=== PATIENT | male | born 1970 | race Caucasian/White ===

== ENCOUNTER 2024-09-16 15:29 | Outpatient (CLI) | payer MEDICAID | END 2024-09-16 23:59 | disposition home or self-care (01) | LOC: RAD 15:29 | DX: M51.16 Intervertebral disc disorders with radiculopathy, lumbar region (principal); M41.86 Other forms of scoliosis, lumbar region; M16.0 Bilateral primary osteoarthritis of hip; M54.50 Low back pain, unspecified | CPT/HCPCS: 72100; 72170 ==

== ENCOUNTER 2025-01-08 12:04 | Day surgery (SDC) | payer MEDICAID ==
[2025-01-01 15:22] LABS: BASOPHILS % (AUTO) 0.5 % (0-1); EOSINOPHILS # (AUTO) 0.1 X10'3 (0-0.9); EOSINOPHILS % (AUTO) 1.9 % (0-6); LYMPHOCYTES # (AUTO) 1.8 X10'3 (1.1-4.8); LYMPHOCYTES % (AUTO) 25.2 % (21-51); MEAN CORPUSCULAR HEMOGLOBIN 29.7 PG (27.0-31.0); MEAN CORPUSCULAR HGB CONC 34.1 g/dL (33.0-36.5); MEAN CORPUSCULAR VOLUME 87.3 FL (78-98); MEAN PLATELET VOLUME 8.7 FL (7.4-10.4); MONOCYTES # (AUTO) 0.5 X10'3 (0-0.9); MONOCYTES % (AUTO) 6.6 % (2-12); NEUTROPHILS # (AUTO) 4.7 X10'3 (1.8-7.7); NEUTROPHILS % (AUTO) 65.8 % (42-75); PRE OP HEMATOCRIT 44.1 % (42.0-52.0); PRE OP PLATELET COUNT 258 X10'3 (140-440); PRE OP WHITE BLOOD COUNT 7.1 10'3 (4.8-10.8); RED BLOOD COUNT 5.05 X10'6 (4.70-6.10); RED CELL DISTRIBUTION WIDTH 13.7 % (11.5-14.5)
[2025-01-01 15:32] LABS: ALBUMIN 3.7 G/DL (3.4-5.0); ALBUMIN/GLOBULIN RATIO 0.9 (1.1-1.5); ALKALINE PHOSPHATASE 99 IU/L (46-116); BLOOD UREA NITROGEN 22 MG/DL (7-18); CALCIUM 8.9 MG/DL (8.5-10.1); CHLORIDE 103 MMOL/L (99-107); PRE OP ALT 48 U/L (30-65); PRE OP ANION GAP 5 (8-16); PRE OP AST 24 U/L (10-37); PRE OP BILIRUB, TOTAL 0.2 MG/DL (0.0-1.0); PRE OP GLUCOSE 138 MG/DL (70-104); PRE OP POTASSIUM 4.1 MMOL/L (3.4-5.1); PRE OP SODIUM 140 MMOL/L (135-145); TOTAL CARBON DIOXIDE 32.4 MMOL/L (24-32); TOTAL PROTEIN 7.8 G/DL (6.4-8.2); eGFR 70 ML/MIN
--- NOTE | 2025-01-01 15:50 | ELECTROCARDIOGRAPH REPORT ---
[facility] Test Date: 2025-01-01 Test Time: 15:46:49 Pat Name: MADONNA MOORE Department: [facility]-PRE-OP Patient ID: [id number] Room: Gender: M [employer]: : 1970 Requested By: ZOE RIVERA Order Number: [id number] Reading MD: Dr. SEA Connell Measurements Intervals [place] Rate: 59 P: 68 GA: 195 QRS: 37 QRSD: 101 T: 39 QT: 383 QTc: 380 Interpretive Statements Sinus bradycardia Abnormal R-wave progression, early transition ST elevation, consider inferior injury Electronically Signed On 01-01-2025 19:48:[address] SEA Connell Please click the below link to view image of tracing.
[2025-01-08] VITALS (13 sets, daily range): BP systolic 111–171; BP diastolic 68–101; PULSE 55–93; RESP 12–20; TEMP 97.7; O2SAT 90–99
[~2025-01-08] VITALS: Ht 167.6 cm; Wt 98.0 kg
[~2025-01-08 12:04] MED LIST: BUPIVAcaine 2.5mg/ml inj 50ml vial (contains preservative) ONE; LIDOcaine 1% 30ml preserv. free vial ONE; PARO20TA6 PO
[2025-01-08] MEDS: ceFAZolin 2gm/dext,iso 50mL 50 ML IV ONE (13:14)
[2025-01-08] MEDS: famotidine 20mg tablet PO ONE (13:17)
[2025-01-08] MEDS: ringers solution, lacted 1,000 ML IV SCH ×2 (13:17→17:39)
[2025-01-08] MEDS ORDERED: BUPIVAcaine 2.5mg/ml inj 50ml vial (contains preservative) ONE ×2 (14:27→14:28)
[2025-01-08] MEDS ORDERED: LIDOcaine 1% 30ml preserv. free vial ONE (14:27)
[2025-01-08] MEDS ORDERED: BUPIVACAINE liposomal/PF 13.3 MG/ML 10mL vial IM ONE (14:29)
[2025-01-08] MEDS ORDERED: labetalol 20mg/4ml (5mg/ml) syringe IV PRN (15:45)
[2025-01-08] MEDS ORDERED: ondansetron/PF 4mg/2ml inj IV PRN (15:45)
[2025-01-08] MEDS ORDERED: HYDROmorphone/PF 0.2 MG/ML SYRINGE IV PRN ×2 (15:45)
[2025-01-08] MEDS ORDERED: hydrALAZINE 20mg/ml inj. IV PRN (15:45)
[2025-01-08] MEDS ORDERED: proCHLORperazine 10 MG/2 ml inj IV PRN (15:45)
[2025-01-08] MEDS ORDERED: meperidine/PF 25mg/ml syringe IV PRN (15:45)
[2025-01-08] MEDS ORDERED: morphine 4 MG/ML inj SYRINge IV PRN (15:45)
[2025-01-08] MEDS ORDERED: midazolam 1 mg/ML 2ml injection ONE (15:50)
[2025-01-08] MEDS ORDERED: fentaNYL /PF 50mcg/ml 5ml ampule ONE (15:50)
[2025-01-08] MEDS ORDERED: dexamethasone sod phosphate 4mg/ml inj. ONE (16:00)
[2025-01-08] MEDS ORDERED: propofol inj 20 ML IV ONE (16:00)
[2025-01-08] MEDS ORDERED: ondansetron/PF 4mg/2ml inj ONE (16:00)
[2025-01-08] MEDS ORDERED: rocuronium 10mg/ml inj IV ONE (16:00)
[2025-01-08] MEDS ORDERED: LIDOcaine 1%/PF 5ML 10 MG/ML VIAL ONE ×2 (16:00)
[2025-01-08] MEDS ORDERED: glycopyrrolate 0.2mg/ml inj ONE (17:04)
[2025-01-08] MEDS ORDERED: albuterol 60 PUFF/8GM Inhaler (90mcg/1 puff) IH ONE (17:04)
[2025-01-08] MEDS ORDERED: neostigmine methylsulfate 1 MG/ML 10ml vial ONE (17:04)
--- NOTE | 2025-01-08 17:12 | OPERATIVE REPORT ---
Operative Report Providers to CC: MARIO RIVERA MD ~ Date of Procedure: January 08, 2025 Pre-Operative Diagnosis: Umbilical hernia Post-Operative Diagnosis 1.5 cm umbilical hernia 2 cm ventral hernia Total hernia defect size 3.5 cm Procedure Performed Robotic assisted, laparoscopic 3.5 cm ventral/umbilical hernia repairs with mesh Bilateral transversus abdominis plane nerve blocks by injection using 266 mg of Exparel Surgeon: Mario Rivera MD FACS Car [place] None Anesthesiologist: Wendi Oliva Type of Anesthesia: General Findings: 1.5 cm umbilical hernia 2 cm ventral hernia Complications None Prosthetics\Implants used: 12 cm diameter coated polyester mesh Estimated Blood Loss: Minimal Specimen Removed: None Description of Procedure: Patient was brought to the operating room and identified by the nursing staff and the attending physician. Patient was placed supine and a general anesthesia was induced. Preoperative antibiotics were given. The abdomen was prepped and draped in the standard sterile fashion. Through a left subcostal stab incision the abdomen was accessed with a Veress needle technique. Abdomen was insufflated without incident. The incision was lengthened to accommodate a 12 mm optical trocar and the abdomen was entered under laparoscopic visualization. The abdomen was surveyed laparoscopically. There was omentum tented up to the anterior abdominal wall and herniated through a fascial defect at the level of the umbilicus. Under laparoscopic visualization, robotic trochars were placed in the left lateral and left lower quadrant. The da Migue robotic arm was docked to the patient and instruments guided intra-abdominally under laparoscopic visualization. Omentum was mobilized out of a fascial defect just above the umbilicus in the abdominal midline. This ended up being a 2 cm fascial defect. The peritoneum just lateral with the midline was mobilized toward the midline and at the level of the supraumbilical space, a fascial defect was encountered. Hernia sac was mobilized and reduced. This hernia sac and peritoneum was mobilized inferiorly with the infraumbilical fat pad, exposing the posterior rectus sheath and rectus abdominis, to a distance of about 5 cm below the umbilicus. The falciform ligament was mobilized superiorly, exposing the posterior rectus sheath and creating adequate space for mesh fixation. Fascial defect(s) were then reapproximated with running, nonabsorbable, 0V lock suture. Good fascial apposition was obtained without significant tension. A coated polyester mesh was then fixed to the anterior abdominal wall with running, absorbable, 2/0, V lock suture. Mesh laid without wrinkles or folds. The mesh measured 12 cm in diameter and was centered at the ventral hernia just above the umbilicus. The umbilical hernia defect measured 1.5 cm and the ventral hernia defect measured 2 cm. The da Migue instruments were then removed and the robot undocked from the patient. Bilateral transversus abdominis plane nerve blocks by injection were then placed under laparoscopic visualization using a combination of Marcaine and 266 mg of Exparel. The left subcostal trocar was removed and its fascia closed percutaneously with 0 Vicryl suture under laparoscopic visualization. Remaining trochars were removed after the abdomen was allowed to deflate. Skin was closed at all sites with 4-0 Monocryl sutures and dressed with sterile dressings. Patient was awakened and taken to the postanesthesia care unit in stable condition. Counts repoted as correct: Yes MARIO RIVERA MD January 08, 2025 17:12
[2025-01-08] MEDS: ipratropium/albuterol 3ml nebule IH ONE (17:19)
[2025-01-08] MEDS: morphine 2 MG/ML inj. syringe IV PRN (17:26)
[2025-01-08] MEDS: acetaminophen 1,000mg/100ml IV 100 ML IV PRN (17:26)
[2025-01-08] MEDS: oxyCODONE/APAP 5-325mg tablet PO PRN (18:05)
== END 2025-01-08 18:59 | disposition home or self-care (01) ==
LOC: PRE-OP 12:04
PROVIDERS: ATTEND Surgery
DX: K42.9 Umbilical hernia without obstruction or gangrene (principal); K43.9 Ventral hernia without obstruction or gangrene; Z79.899 Other long term (current) drug therapy; F41.8 Other specified anxiety disorders
CPT/HCPCS: 36415; 49593; 64488; 80053; 82948; 85025; 93005; 94640; C1781; J0131; J0666; J0690; J1100; J2003; J2175; J2250; J2270; J2405; J2704; J2710; J3010; J3490; J7030; J7120; Z7506; Z7508; Z7512; A4215; A4615; A4618